=== PATIENT | male | born 1965 | race Caucasian/White ===

== ENCOUNTER 2024-06-18 12:55 | Day surgery (SDC) | payer OTHER, SELFPAY ==
[2024-06-18] VITALS (8 sets, daily range): BP systolic 124–144; BP diastolic 67–77; PULSE 55–63; RESP 11–24; TEMP 36.7–37.1; O2SAT 95–100; BMI 24.8
[2024-06-18] MEDS: ONDANSETRON INJ 2 MG/ML INJ 2 ML 4 MG IV (14:55)
[2024-06-18] MEDS: MIDAZOLAM INJ 1 MG/ML VIAL 2 ML (ASD USE ONLY) 2 MG IV (14:57)
[2024-06-18] MEDS: fentaNYL CIT INJ 50 mCg/ML AMP 2ML (ASD USE ONLY) IV (14:58)
[2024-06-18] MEDS: DiphenhydrAMINE INJ 50 MG/ML VIAL 25 MG IV (14:59)
--- NOTE | 2024-06-18 16:14 | SUR.PHASEII ---
1513: Pt received for recovery. Report from Sammi ARIZMENDI. Pt groggy. Easily aroused. Resp even, unlabored. VS stable. Denies pain. 1540: Pt more awake, alert. VS stable. Denies pain. Sitting up tolerating po fluids with no difficulty swallowing and no n/v. 1600: Pt fully awake, oriented x3. Pt assisted to restroom. Ambulation steady. Pt and stated understanding of discharge instructions. Pt discharged from [facility] in stable condition.
== END 2024-06-18 16:00 | disposition home or self-care (01) ==
PROVIDERS: PCP Family Medicine; Referring Provider Specialist; Visit Provider Specialist
PROC: 0DBE8ZX Excision of Large Intestine, Via Natural or Artificial Opening Endoscopic, Diagnostic (ICD-10-PCS; CPT 45380; principal; 2024-06-18 09:00)
DX: D12.0 Benign neoplasm of cecum (principal); D12.8 Benign neoplasm of rectum; K64.9 Unspecified hemorrhoids; K57.30 Diverticulosis of large intestine without perforation or abscess without bleeding
CPT/HCPCS: 45380; 45385; A4649; J1200; J2250; J2405; J3010